=== PATIENT | female | born 1955 | race Two or more races ===

== ENCOUNTER 2023-01-05 15:39 | Outpatient (REF) | payer OTHER, SELFPAY ==
[2023-01-05 17:08] LABS: MANUAL DIFF FLAG NO
[2023-01-05 17:16] LABS: Basophils Absolute Auto 0.1 X10*3/uL (0.0-0.2); Basophils Percent Auto 0.7 % (0-2); Eosinophils Absolute Auto 0.3 X10*3/uL (0.0-0.4); Eosinophils Percent Auto 3.6 % (0-4); Hematocrit 39.3 % (37.0-47.0); Hemoglobin 13.8 g/dl (12.0-16.0); Imm Gran Abs Auto 0.04 X10*3/uL (0.00-0.03); Imm Gran Pct Auto 0.4 % (0.0-0.4); Mean Corpuscular HGB Conc 35.1 g/dl (31.0-35.0); Mean Corpuscular Hemoglobin 30.5 pg (27.0-33.0); Mean Corpuscular Volume 86.9 fL (80.0-98.0); Mean Platelet Volume 9.2 fL (9.4-12.3); Monocytes Absolute Auto 0.7 X10*3/uL (0.1-1.2); Monocytes Percent Auto 7.8 % (2-11); Neutrophils Percent Auto 65.5 % (45-73); Platelet Count 315 X10*3/uL (160-400); Red Blood Count 4.52 X10*6/uL (4.20-5.50); Red Cell Distribution Width 12.1 % (11.0-16.0); White Blood Count 9.2 X10*3/uL (4.8-10.8)
[2023-01-05 18:01] LABS: Erythrocyte Sedimentation Rate 10 MM/HR (0-20)
[2023-01-10 04:34] LABS: C1 Esterase Inhibitor >100 % (>=68)
== END 2023-01-05 15:40 | disposition home or self-care (01) ==
LOC: HO.CHCLDS 15:39
PROVIDERS: Visit Provider Pediatrics
DX: L50.0 Allergic urticaria (principal); K13.0 Diseases of lips; R13.10 Dysphagia, unspecified; L53.9 Erythematous condition, unspecified
CPT/HCPCS: 36415; 85025; 85652; 86161

== ENCOUNTER 2023-05-16 09:16 | Outpatient (AMB) | payer OTHER, SELFPAY ==
--- NOTE | 2023-05-16 09:24 | MHC.OFFVIS ---
Intake Vital Signs 05/16/23 09:30 Height 5 ft 3 in Weight 135 lb BMI 23.9 BP 163/78 H Blood Pressure Location Lt brachial Position Sitting Pulse 63 Intake Visit Reasons: Colonoscopy Screening Intake Note: Patient new consult for 2nd pre colonoscopy screening. Patient denies any GI issues. Actuarial Manager Required: No Accompanied by: Self / Same As Patient Allergies No Known Allergies Allergy (Verified 05/16/23 09:25) HPI HPI Comments History of Present Illness Details A pleasant 67 y/o female referred for screening colonoscopy-she has no GI or general complaints Taking antibiotics currently for recent dental procedure doing well Appetite is good Bowels are normal She has no respiratory or cardiac Hypertension-takes medications as prescribed No nausea, vomiting, hematemesis, hematochezia fever chills [facility] Social History (Updated 05/16/23 @ 09:27 by Oralia Chandler PA-C) Comment: social Patient Tobacco Use Status: Former Tobacco user Current occupational status: employed Current occupation: Atty Review of Systems Const All systems reviewed & are unremarkable except as noted in HPI and below Card Denies chest pain and Denies dyspnea Resp Denies dyspnea GI Denies abdominal pain, Denies change in stool character, Denies nausea and Denies vomiting Physical Exam Const General: cooperative, healthy appearing, comfortable, no acute distress and well groomed Orientation/consciousness: patient oriented x3 Limitations: no limitations Eyes Sclerae: sclerae normal Resp Effort & Inspection: normal respiratory effort and able to speak in complete sentences Auscultation: clear to auscultation bilaterally, no rales, no rhonchi and no wheezes Cardio Rate: regular rate Rhythm: regular rhythm Heart sounds: S1 normal heart sound present and S2 normal heart sound present GI Auscultation: normal bowel sounds Skin General skin exam: no rashes or lesions noted and ecchymosis (R-lower mandible recent dental procedure) Neuro General: patient oriented x3 Extrem General: Yes full ROM Psych Appearance: grossly normal and well kempt Mental Status: mental status grossly normal Speech and movement: Normal speech and movement present and Clear speech present Affect: normal affect Attitude: cooperative Thought process: Normal thought process present Thought content: Normal thought content present Insight: Good insight present (Psych) Judgement: Good judgement present (Psych) Assessment & Plan Assessment & Plan (1) Encounter for screening colonoscopy: Comment: Reviewed procedure, indication, need for escorted due to anesthesia and prep Code(s): Z12.11 - Encounter for screening for malignant neoplasm of colon Plan: Screening colonoscopy Plan Colonoscopy MG prep Patient Instructions: Screening colonoscopy MiraLax Gatorade prep, reviewed literature Need for escort due to anesthesia Encouraged to call questions or concerns Coding Level of Care Code New Pt Level 3 (92306) Diagnoses Encounter for screening colonoscopy Z12.11 Time Spent (min) 25
[2023-05-16 09:30] VITALS: BP 163/78; PULSE 63; BMI 23.9
== END 2023-05-16 10:32 | disposition home or self-care (01) ==
PROVIDERS: Visit Provider Physician Assistant
DX: Z01.818 Encounter for other preprocedural examination (principal); Z12.11 Encounter for screening for malignant neoplasm of colon
CPT/HCPCS: S0285

== ENCOUNTER 2023-12-14 07:18 | Day surgery (SDC) | payer OTHER, SELFPAY ==
[2023-12-12 14:59] VITALS: BMI 23.9
--- NOTE | 2023-12-13 09:24 | P.CONAN_ITS ---
Documented by User: Shannan Dimas NP 12/13/23 09:29 HPI - Anesthesia Eval Consult details Narrative: 68yo F for Colonoscopy [facility] Active Problems Active Problems: All Active Problems HTN (hypertension) (Acute) Encounter for screening colonoscopy (Acute) Past Medical History Medical History (Updated 12/12/23 @ 14:59 by Lupis Thapa RN) HTN (hypertension) Surgical History Surgical History (Updated 12/14/23 @ 07:26 by Connie Schumacher RN) H/O skin graft Hx of cholecystectomy History of tonsillectomy Surgical history unknown Social History Social History Comment: social Patient Tobacco Use Status: Former Tobacco user Current occupational status: employed Current occupation: [employer] Allergies Allergy/AdvReac Type Severity Reaction Status Date / Time No Known Allergies Allergy Verified 05/16/23 09:25 Home Medications ?Medication ?Instructions ?Recorded ?Confirmed ?Last Taken ?Type hydrochlorothiazide 25 mg tablet 25 mg PO DAILY 05/16/23 12/12/23 Unknown History metoprolol succinate 50 mg 50 mg PO DAILY 05/16/23 12/12/23 Unknown History tablet,extended release 24 hr Exam Height,Weight and Vital Signs: Height 5 ft 3 in Weight 61.235 kg Assessment and Plan Assessment Anesthesia Assessment: Chart Reviewed Documented by User: Gabo Jasmine MD 12/14/23 07:34 [facility] Past Medical History Medical History (Updated 12/12/23 @ 14:59 by Lupis Thapa RN) HTN (hypertension) Family History Family history of problems with anesthesia: No Surgical History Surgical History (Updated 12/14/23 @ 07:26 by Connie Schumacher RN) H/O skin graft Hx of cholecystectomy History of tonsillectomy Surgical history unknown History of Problems with Anesthesia: No Social History Social History Comment: social Patient Tobacco Use Status: Former Tobacco user Current occupational status: employed Current occupation: Atty Meds Allergies Allergy/AdvReac Type Severity Reaction Status Date / Time No Known Allergies Allergy Verified 05/16/23 09:25 Home Medications ?Medication ?Instructions ?Recorded ?Confirmed ?Last Taken ?Type hydrochlorothiazide 25 mg tablet 25 mg PO DAILY 05/16/23 12/12/23 Unknown History metoprolol succinate 50 mg 50 mg PO DAILY 05/16/23 12/12/23 Unknown History tablet,extended release 24 hr Exam Airway Mallampati Class: II TM Dist: >3cm Neck ROM: Full Denture: Lower Heart: ok Lungs: ok Assessment and Plan Assessment Anesthesia Assessment: Anesthesia Plan Discussed Final Anesthetic Review Family History of Problems with Anesthesia: No History of Problems with Anesthesia: No NPO: Yes ASA Class: II Final Preanesthetic Review: No Changes in Pt Med Stat, Meds/Allgs Chart Reviewed, Consent Obtained/Reviewed and Anes Risks/Benef Reviewed Patient Risk: Low Procedure Risk: Low Anesthetic Plan Anesthetic Plan: MAC: and Agree w/ Assess. and Plan Disposition: Standard PACU
[2023-12-14 07:28] VITALS: BMI 24.7
[2023-12-14 07:33] VITALS: BP 171/104; PULSE 110; RESP 16; TEMP 36.7; O2SAT 94
--- NOTE | 2023-12-14 07:41 | P.HPSUR_ITS ---
Pre-Procedural Eval Section A - 24 Hr Update-Section A only Date of Service: 12/14/23 Section B - Complete if H&P > 30 days Chief Complaint: screening Relevant Family History (Specify if Yes): No Relevant Social History: None Present Medications: see Short Stay Collaborative assessment Medical History: Significant History (HTN (hypertension)) History of Previous Operations: Relevant previous surgery/procedure and date(s) (H/O skin graft Hx of cholecystectomy History of tonsillectomy) Allergies: Allergies Allergy/AdvReac Type Severity Reaction Status Date / Time No Known Allergies Allergy Verified 05/16/23 09:25 Review of Systems Sugical H&P ROS: Negative: Constitution, Cardiovascular, Respiratory, Neurological, Psychiatric, Hem-Onc, Allergic/Immunologic, Gastrointestinal, Genitourinary, Musculoskeletal, Integumentary, Endocrine and Eyes/Ears/Nose/T hroat Exam Surgical H&P Exam: Normal: HEENT, Normal: Heart, Normal: Lungs, Normal: Extremities, Normal: Abdomen, Normal: Skin and Normal: Neurological Plan Diagnosis/Plan: Unchanged I have reviewed the history and physical and performed a pertinent physical examination on my patient. No changes have occurred unless specified. Time Spent With Patient Time: Total time managing care of this patient today ____ minutes.
[2023-12-14 07:46] VITALS: PULSE 97
[2023-12-14] MEDS: Lactated Ringers 1,000 ML 100 ML IVCONT (07:46)
--- NOTE | 2023-12-14 08:12 | HO.OPN-COLON ---
Colonoscopy Operative Note Operative Note Date of Service: 12/14/23 Narrative: Operative Information Procedure Description: Colonoscopy Indication: screening Anesthesia: MAC COLONOSCOPY Instrument: Olympus variable stiffness pediatric scope 190L Colonoscopy Monitoring: Vital signs and clinical assessment, continuous EKG monitoring, Pulse oximetry, Carbon Dioxide monitoring and blood pressure monitoring were done throughout the procedure. Colon withdrawal time was 11 minutes. Procedure: The patient was placed in the left lateral decubitis position and pre-procedure medications were administered. After a digital rectal examination of the ano-rectum, the video colonoscope was inserted into the rectum and advanced through the colon to the cecum/TI. The colonoscope was slowly withdrawn in a retrograde panoramic fashion and the colon mucosa was carefully examined including a retroflexed view of the rectum. Findings and interventions are described below. Procedure Difficulty: moderate due to diverticulosis Findings: Terminal Ileum-normal Cecum:normal Ascending Colon: severe diverticulosis Transverse Colon - moderate diverticulosis, 8-9 mm sessile polyp removed with cold snare Descending Colon: moderate diverticulosis Sigmoid Colon: severe diverticulosis, 4-5 mm sessile polyp removed with cold forceps Rectum: Retroflexion with small internal hemorrhoids seen, grade I Anorectum - normal Intervention: cold snare, cold forceps Colon preparation: [place] Bowel Preparation Scale Right colon; 2 Transverse colon: 2 Left colon; 2 (0 = Unprepared colon segment with mucosa not seen due to solid stool that cannot be cleared. 1 = Portion of mucosa of the colon segment seen, but other areas of the colon segment not well seen due to staining, residual stool and/or opaque liquid. 2 = Minor amount of residual staining, small fragments of stool and/or opaque liquid, but mucosa of colon segment seen well. 3 = Entire mucosa of colon segment seen well with no residual staining, small fragments of stool or opaque liquid) Impression and Post Procedure Diagnosis: diverticulosis colon polyps internal hemorrhoids Plan: High fiber diet leaflet Avoid straining at stool, epsom salts and sitz bath, anusol supps or cream Repeat Colonoscopy in 5-6 years due to polyps or earlier if clinically indicated Above findings were reviewed with the patient and relevant handouts were provided if indicated.
[2023-12-14 08:21] VITALS: BP 126/76; PULSE 92; RESP 18; TEMP 36.4; O2SAT 91
[2023-12-14 08:37] VITALS: BP 135/87; PULSE 85; RESP 18; TEMP 36.7; O2SAT 94
== END 2023-12-14 08:54 | disposition home or self-care (01) ==
PROVIDERS: PCP Pediatrics; Visit Provider Internal Medicine Gastroenterology
PROC: 0DJD8ZZ Inspection of Lower Intestinal Tract, Via Natural or Artificial Opening Endoscopic (ICD-10-PCS; CPT 45378; principal; 2023-12-14 07:30)
DX: Z12.11 Encounter for screening for malignant neoplasm of colon (principal); D12.3 Benign neoplasm of transverse colon; K57.30 Diverticulosis of large intestine without perforation or abscess without bleeding; K64.0 First degree hemorrhoids; I10 Essential (primary) hypertension; Z87.891 Personal history of nicotine dependence; Z79.899 Other long term (current) drug therapy
CPT/HCPCS: 45385; 45380; 88305; J2003; J2704

== ENCOUNTER → 2023-12-14 07:18 | Outpatient (BNV) | payer OTHER, SELFPAY | PROVIDERS: PCP Pediatrics; Visit Provider Internal Medicine Gastroenterology | DX: Z12.11 Encounter for screening for malignant neoplasm of colon (principal); D12.3 Benign neoplasm of transverse colon; K63.5 Polyp of colon; K57.90 Diverticulosis of intestine, part unspecified, without perforation or abscess without bleeding; K64.0 First degree hemorrhoids | CPT/HCPCS: 45380; 45385 ==